=== PATIENT | female | born 1995 | race Caucasian/White ===

== ENCOUNTER 2016-06-19 12:57 | Emergency (ER) | payer BC ==
[2016-06-19] MEDS ORDERED: Sodium Chloride 0.9% 1000 ML 1,000 ML IV STA (13:26)
[2016-06-19] MEDS ORDERED: Sodium Chloride 0.9% 1000 ML 1,000 ML ONE (13:31)
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
[2016-06-19 13:46] LABS: BASOPHIL % 0.1 % (0.0-0.4); Eosinophil % 1.7 % (0.00-5.0); Granulocytes % 58.6 % (36.0-66.0); Lymphocytes % 32.2 % (24.0-44.0); Mean Cell Volume 85.2 fl (78-100); Mean Corpuscular Hemoglobin 30.3 pg (26-32); Mean Platelet Volume 9.2 fl (6-9.5); Monocytes % 7.4 % (0.0-12.0); Platelet Count 209 K/mm3 (150-450); Red Blood Count 3.99 M/mm3 (4.1-5.4); Red Cell Distribution Width 12.5 % (11.5-14.0)
[2016-06-19 14:20] LABS: COMPLETE URINE MICROSCOPIC? NO; Collection Type CCMS
[2016-06-19 14:31] LABS: ALBUMIN 3.8 g/dL (3.4-5.0); ALKALINE PHOSPHATASE 49 U/L (46-116); ANION GAP 12.9 MEQ/L (5-15); BLOOD UREA NITROGEN 6 mg/dL (9-20); CHLORIDE 106 mEq/L (98-107); Carbon Dioxide 24.8 mEq/L (21-32); Glucose 104 MG/DL (70-110); HCG, Quantitative (Inhouse) 40971 IU/L (0-6); LIPASE 112 U/L (73-393); Potassium 3.4 mEq/L (3.5-5.1); SGOT/AST 18 U/L (15-37); SGPT/ALT 15 U/L (12-78); SODIUM 140 mEq/L (136-145); Total Protein 7.2 gm/dL (6.4-8.2)
[2016-06-19 14:39] VITALS: O2SAT 98
[2016-06-19 15:01] VITALS: BP 106/64; PULSE 73
== END 2016-06-19 15:02 | disposition home or self-care (01) ==
LOC: ED 12:57
DX: O21.0 Mild hyperemesis gravidarum (principal); R11.0 Nausea; R10.9 Unspecified abdominal pain; R10.13 Epigastric pain
CPT/HCPCS: 36000; 36415; 80053; 81002; 82150; 83690; 84702; 84703; 85025; 96360; 99283

== ENCOUNTER 2020-02-06 14:46 | Emergency (ER) | payer BC, OTHER ==
[2020-02-06] MEDS ORDERED: Hydromorphone 1 mg/ml Ampule IV ONE ×2 (14:57→16:40)
[2020-02-06] MEDS ORDERED: Hydromorphone 1 mg/ml Ampule ONE ×2 (15:06→16:43)
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
--- NOTE | 2020-02-06 17:25 | XRAY ---
Exam: CT of the facial bones without IV contrast from 02/06/2020. CTDI: 34.54 mGy Comparison: None. Technique: Non-IV contrast axial images were obtained through the facial bones. Reconstructed coronal and sagittal images were created and reviewed. Findings: I see evidence of an old fracture deformity involving the left orbit and maxilla. Small surgical screws are seen near the left frontal-zygomatic suture and anterior lateral aspect of the left maxilla. Some old fracture fragments are seen in this latter projection. Chronic soft tissue density seen laterally within the left maxillary region. I also note chronic inward bowing of the medial wall of the left orbit on axial image #48 consistent with an old healed fracture. The maxillary sinuses reveal no evidence of other sinus opacification or air-fluid levels. I do note moderate peripheral mucoperiosteal thickening within the sphenoid sinus on each side of midline. No air-fluid levels are seen. This is probably due to chronic sinus disease. Small uvaldo bullosa are seen within the middle nasal turbinates, larger on the right than left. Subtle mucosal thickening is seen within the anterior right ethmoid sinus. This appears improved compared to the CT of the head from 12/19/2017. The frontal sinuses appear unremarkable. I see no evidence of acute facial bone fracture. I again note a couple tiny soft tissue density/calcifications at the anterior aspect of left orbit and 2 tiny soft tissue density/calcifications at the anterior lateral aspect of the left orbit. This may represent the sequela of old injury or prior surgery. Correlate clinically to exclude soft tissue foreign bodies near the left eyelid. An acute nondisplaced fracture of the left temporal bone extending into the mastoid portion is seen. There is asymmetric clouding of the left mastoid air cells as well as soft tissue density consistent with blood products within the external artery canal and left middle ear cavity. I again see evidence prior right frontal-parietal/temporal craniotomy flap. Impression: 1. I see no definite evidence of acute facial bone fracture or traumatic air-fluid levels within the paranasal sinuses. 2. I again see evidence of old fracture deformities with surgical intervention of the left orbit and left maxilla, as discussed. 3. New moderate peripheral mucoperiosteal thickening within the sphenoid sinus on each side of midline without air-fluid levels, as compared to the CT of the head from 12/19/2017. This may represent chronic sphenoid sinus disease. A definite fracture is not seen. 4. Other findings as discussed above and in the CT of the head report performed concurrently.
[2020-02-06 18:03] VITALS: BP 121/73; PULSE 67; O2SAT 96
== END 2020-02-06 18:10 | disposition home or self-care (01) ==
LOC: ED 14:46
DX: H92.02 Otalgia, left ear (principal); R51 Headache; Z87.820 Personal history of traumatic brain injury; S09.90XD Unspecified injury of head, subsequent encounter; V29.9XXD Motorcycle rider (driver) (passenger) injured in unspecified traffic accident, subsequent encounter
CPT/HCPCS: 36000; 36415; 70450; 70486; 81025; 96374; 96375; 96376; 99284; J1170

== ENCOUNTER 2021-11-15 17:36 | Emergency (ER) | payer BC, OTHER ==
[2021-11-15 17:47] VITALS: BP 126/101; PULSE 105; O2SAT 97
[2021-11-15] MEDS ORDERED: TORAdol 30 mg Injection IM ONE (17:51)
[2021-11-15] MEDS ORDERED: TORAdol 30 mg Injection ONE (17:52)
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
--- NOTE | 2021-11-16 09:02 | XRAY ---
Indication: Pain following "sneeze" 3 weeks ago. Comparison: None 3 view right shoulder demonstrates normal bones, articulation, and soft tissues.
== END 2021-11-15 18:42 | disposition home or self-care (01) ==
LOC: ED 17:36
DX: S46.911A Strain of unspecified muscle, fascia and tendon at shoulder and upper arm level, right arm, initial encounter (principal); X50.0XXA Overexertion from strenuous movement or load, initial encounter; M25.511 Pain in right shoulder; Z79.899 Other long term (current) drug therapy; Z28.310 Unvaccinated for COVID-19
CPT/HCPCS: 73030; 96372; 99284; J1885